=== PATIENT | female | born 1990 | race Caucasian/White ===

== ENCOUNTER 2018-12-16 06:41 | Outpatient (CLI) | payer OTHER ==
[~2018-12-16] VITALS: Ht 165.1 cm; Wt 68.0 kg
== END 2018-12-16 12:05 | disposition home or self-care (01) ==
LOC: PREOP 06:41
PROVIDERS: ATTEND Obstetrics & Gynecology
DX: Z01.818 Encounter for other preprocedural examination (principal)

== ENCOUNTER 2018-12-19 07:50 | Day surgery (SDC) | payer OTHER ==
[~2018-12-19] VITALS: Ht 165.1 cm; Wt 65.8 kg
[2018-12-19 08:10] VITALS: BP 127/85
--- NOTE | 2018-12-19 08:31 | Progress Note-Pre Operative ---
Pre-Operative Progress Note H&P Reviewed The H&P was reviewed, patient examined and no changes noted. Date Seen by Provider: Dec 19, 2018 Time Seen by Provider: 08:30 Date H&P Reviewed: Dec 19, 2018 Time H&P Reviewed: 08:30 Pre-Operative Diagnosis: bhumi 3 SHOAIB SALGADO DO Dec 19, 2018 08:31
[2018-12-19] MEDS: LACTATED RINGERS 1,000 ML IV PRN ×2 (08:40→11:09)
[2018-12-19 08:50] LABS: BASOPHILS % (AUTO) 0 % (0-10); EOSINOPHILS # (AUTO) 0.2 10^3/uL (0.0-0.3); EOSINOPHILS % (AUTO) 3 % (0-10); HEMATOCRIT 43 % (35-52); HEMOGLOBIN 14.6 G/DL (11.5-16.0); LYMPHOCYTES # (AUTO) 2.1 X 10^3 (1.0-4.0); LYMPHOCYTES % (AUTO) 38 % (12-44); MEAN CORPUSCULAR HEMOGLOBIN 29 PG (25-34); MEAN CORPUSCULAR HGB CONC 34 G/DL (32-36); MEAN CORPUSCULAR VOLUME 85 FL (80-99); MEAN PLATELET VOLUME 10.9 FL (7.4-10.4); MONOCYTES # (AUTO) 0.5 X 10^3 (0.0-1.0); MONOCYTES % (AUTO) 10 % (0-12); NEUTROPHILS # (AUTO) 2.8 X 10^3 (1.8-7.8); NEUTROPHILS % (AUTO) 49 % (42-75); PLATELET COUNT 271 10^3/uL (130-400); RED CELL DISTRIBUTION WIDTH 12.5 % (10.0-14.5); WHITE BLOOD COUNT 5.6 10^3/uL (4.3-11.0)
[2018-12-19] MEDS ORDERED: BUP/EPI 0.5% 1:200,000 (SENSORCAINE) 30 ML VIAL ONE ×2 (09:30→10:17)
[2018-12-19] MEDS ORDERED: BUPIVACAINE 0.25% 30 ML (SENSORCAINE) VIAL ONE (09:30)
[2018-12-19] MEDS ORDERED: LIDOCAINE PF 2% 5 ML (XYLOCAINE) VIAL ONE (09:59)
[2018-12-19] MEDS ORDERED: proPOfol 200 MG/20 ML (DIPRIVAN) VIAL IV ONE (09:59)
[2018-12-19] MEDS ORDERED: MIDAZOLAM 2 MG/2 ML (VERSED) VIAL ONE (10:00)
[2018-12-19] MEDS ORDERED: fentaNYL INJECTION 100 MCG/2 ML AMP ONE (10:00)
[2018-12-19] MEDS ORDERED: DEXAMETHASONE 10 MG/ML (DECADRON) 1 ML VIAL ONE (10:03)
[2018-12-19] MEDS ORDERED: ONDANSETRON 4 MG/2 ML (SDV) Z0FRAN ONE (10:03)
[2018-12-19] MEDS ORDERED: SEVOFLURANE (ULTANE) 15 ML INHAL SOLN ONE ×3 (10:03→10:27)
--- NOTE | 2018-12-19 10:05 | Discharge Inst-Women's Service ---
Discharge Inst-Women's Serv Depart Medication/Instructions New, Converted or Re-Newed RX: RX on Chart Consults/Follow Up Additional Follow Up: Yes Orders/Referrals Dr. Frazier in 3 weeks Activity Activity: Activity as Tolerated Driving Instructions: You May Drive NO SMOKING: NO SMOKING Nothing Inside Vagina: No Douching, No [place], No Tampons Diet Discharge Diet: No Restrictions Symptoms to Report to : Bleeding Excessive, Pain Increased, Fever Over 101 Degrees F, Vaginal Bleeding Increase, Questions/Concerns For Any Problems or Questions: Contact Your Physician Skin/Wound Care Bathing Instructions: SHOAIB Velásquez DO Dec 19, 2018 10:05
[2018-12-19] MEDS ORDERED: IBUP-1773 PO (10:07)
[2018-12-19] MEDS ORDERED: TRAM-42 PO (10:07)
[2018-12-19] MEDS ORDERED: KETOROLAC 30 MG/ML VIAL IVP ONE (11:15)
[2018-12-19] MEDS ORDERED: morphine INJ 10 MG/ML 1ML (SYR OR VIAL) IVP ONE (11:15)
[2018-12-19] MEDS ORDERED: PROMETHAZINE INJ 25 MG/ML (PHENERGAN) AMP IVP ONE (11:15)
[2018-12-19] MEDS ORDERED: ONDANSETRON 4 MG/2 ML (SDV) Z0FRAN IVP PRN (11:15)
[2018-12-19] MEDS ORDERED: HYDROmorphone 2 MG/ML VIAL (DILAUDID) IV ONE (11:15)
[2018-12-19] MEDS ORDERED: MEPERIDINE (DEMEROL) INJ 50 MG/ML IVP ONE (11:15)
[2018-12-19 11:57] VITALS: BP 114/81
[2018-12-19 12:02] VITALS: BP 114/81
[2018-12-19 12:27] VITALS: BP_SYST 116; BP_DIAS 73; BP_DIAS 80
[2018-12-19 12:57] VITALS: BP 116/73
--- NOTE | 2018-12-19 14:03 | Anesthesia-General Post-Op ---
General Patient Condition Mental Status/LOC: Same as Preop Cardiovascular: Satisfactory Nausea/Vomiting: Absent Respiratory: Satisfactory Pain: Controlled Complications: Absent Post Op Complications Complications None Follow Up Care/Instructions Patient Instructions None needed. Anesthesia/Patient Condition Patient Condition Patient is doing well, no complaints, stable vital signs, no apparent adverse anesthesia problems. No complications reported per nursing. JOSE BEAR CRNA Dec 19, 2018 14:03
--- NOTE | 2018-12-19 15:26 | OPERATIVE REPORT ---
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 PROCEDURE: Cold knife conization. SURGEON: Enrrique Frazier DO ANESTHESIA: General endotracheal. ESTIMATED BLOOD LOSS: Minimal. URINE OUTPUT: 30 mL clear, drained at the end of the procedure. FLUIDS: 900 mL of lactated Ringer solution. FINDINGS: A grossly normal appearing cervix with an extension of the transformation zone at 12 o'clock position. Otherwise, grossly normal appearing. SPECIMENS SENT: Cervical cold knife conization biopsy. INDICATIONS FOR PROCEDURE: This 28-year-old female is a patient who initially seen me in my office for annual well woman visit and to discuss preconceptual counseling. At the time of her visit, Pap smear was performed, which showed high-grade abnormality. Colposcopy confirmed this with ALISON 3 biopsy of the cervix. I then discussed with the patient proceeding with conization. We discussed LEEP in the office versus cold knife cone. Due to the concern of possible invasive disease, cold knife cone was recommended fashion as well as with desire to conceive and carry , a cold knife cone allowed me to direct biopsy in the correct appropriation, direct where the dysplasia is more severe. Risk of the procedure were discussed with the patient in detail in the preoperative area. After all of her questions were answered, consent was obtained. The patient was taken to the operating room. OPERATIVE REPORT IN DETAIL: Once in the operating room, general anesthesia was found to be adequate. She was placed in dorsal lithotomy position, prepped and draped in normal sterile fashion. A timeout was performed. A weighted speculum was inserted in the patient's vagina. A right angle retractor was used to visualize the cervix, grasped at 12 o'clock position using a long Allis clamp. I then performed a paracervical block at 3 and 9 o'clock positions using 0.25% Marcaine. Care was taken to aspirate before injecting, a total of 5 mL were used at each injection site. I then placed 0 Vicryl suture for hemostasis control at 3 and 9 o'clock position with attempts to ligate and limit blood supply to the cervix intraoperatively to reduce intraoperative and postoperative bleeding. After this, I then injected all margins of the cervix using the 0.25% Marcaine solution with epinephrine. I then applied Lugol solution. This allows me to identify the transformation zone and allows me to direct my biopsy. After this was done, I made a circumferential incision around the transformation zone stain 2 to 3 mm wide of the margin after which I take this incision down the cervix and toward the endocervical canal using Yoon scissors removing a cone biopsy of the transformation zone of the cervix, after which there was not a significant amount of bleeding; however, the bleeding that is occurring is made hemostatic using Bovie cautery. I then placed Sturmdorf sutures in the four quadrants of the cervix using 2-0 Vicryl suture. Prior to tightening these sutures down, I applied astringent to the cervical vascular bed as well. After the sutures were tightened down, there was no active bleeding noted from any of my dissection planes. The patient tolerated this procedure well and was taken to the recovery area in in stable condition. All other instruments were removed from the patient's vagina. Lap and sponge counts were correct at the end of the procedure. Instrument counts were correct as well. Job ID: [id number] DocumentID: [id number] Dictated Date: 12/19/2018 11:10:25 Team Guide Date: 12/19/2018 15:25:50 Dictated By: DO JEREMÍAS REYNAGA
== END 2018-12-19 12:59 | disposition home or self-care (01) ==
LOC: SDC 07:50
PROVIDERS: ATTEND Obstetrics & Gynecology
DX: D06.9 Carcinoma in situ of cervix, unspecified (principal); K21.9 Gastro-esophageal reflux disease without esophagitis
CPT/HCPCS: 36415; 84703; 85025; 86850; 86900; 86901; 87081

== ENCOUNTER 2019-11-17 12:46 | Outpatient (CLI) | payer OTHER ==
[~2019-11-17] VITALS: Ht 165 cm; Wt 68.0 kg
[~2019-11-17 12:46] MED LIST: IBUP-1773 PO; TRAM-42 PO
[2019-11-17] MEDS ORDERED: PREN-142 PO (13:04)
== END 2019-11-17 13:18 | disposition home or self-care (01) ==
LOC: PREOP 12:46
PROVIDERS: ATTEND Obstetrics & Gynecology
DX: Z01.818 Encounter for other preprocedural examination (principal)

== ENCOUNTER 2019-11-21 07:13 | Day surgery (SDC) | payer OTHER ==
[~2019-11-21] VITALS: Ht 165 cm; Wt 68.0 kg
[2019-11-21] VITALS (12 sets, daily range): BP systolic 100–127; BP diastolic 56–87
[~2019-11-21 07:13] MED LIST changes: +PREN-142 PO
--- NOTE | 2019-11-21 07:25 | NUR ---
[id number]
[2019-11-21] MEDS: LACTATED RINGERS 1,000 ML IV PRN ×2 (07:35→08:05)
[2019-11-21 07:52] LABS: BASOPHILS % (AUTO) 0 % (0-10); EOSINOPHILS # (AUTO) 0.2 10^3/uL (0.0-0.3); EOSINOPHILS % (AUTO) 2 % (0-10); HEMATOCRIT 38 % (35-52); LYMPHOCYTES # (AUTO) 2.3 X 10^3 (1.0-4.0); LYMPHOCYTES % (AUTO) 26 % (12-44); MEAN CORPUSCULAR HEMOGLOBIN 29 PG (25-34); MEAN CORPUSCULAR HGB CONC 34 G/DL (32-36); MEAN CORPUSCULAR VOLUME 85 FL (80-99); MEAN PLATELET VOLUME 10.6 FL (7.4-10.4); MONOCYTES # (AUTO) 0.8 X 10^3 (0.0-1.0); MONOCYTES % (AUTO) 9 % (0-12); NEUTROPHILS # (AUTO) 5.6 X 10^3 (1.8-7.8); NEUTROPHILS % (AUTO) 63 % (42-75); PLATELET COUNT 212 10^3/uL (130-400); RED CELL DISTRIBUTION WIDTH 12.7 % (10.0-14.5); WHITE BLOOD COUNT 8.9 10^3/uL (4.3-11.0)
--- NOTE | 2019-11-21 07:57 | History & Physical-OB/GYN ---
History of Present Illness History of Present Illness Reason for visit/HPI Shortened Cervix at 15 weeks Date of Admission 11/21/2019 Date Seen by a Provider: Nov 21, 2019 Time Seen by a Provider: 07:55 I consulted on this patient on 11/21/19 07:52 Attending Physician Shoaib Frazier DO Admitting Physician Zahra López MD Consult Allergies and Home Medications Allergies Coded Allergies: codeine (Verified Allergy, Mild, HIVES, N/V, 11/17/19) Home Medications Vit No.124/Iron/FA 1 Each Tablet, 1 EACH PO DAILY, (Reported) Patient Home Medication List Home Medication List Reviewed: Yes Past Lnluwlj-Kvbzcr-Cqktpa Hx Patient Social History Marrital Status: 2nd Hand Smoke Exposure: No Recent Foreign Travel: No Contact w/other who traveled: No Recent Hopitalizations: No Immunizations Up To Date Tetanus Booster (TDap): Unknown Pediatric: No Date of Pneumonia Vaccine: Nov 17, 2004 Date of Influenza Vaccine: Aug 18, 2019 Seasonal Allergies Seasonal Allergies: No Surgeries Yes (COLD KNIFE CONIZATION) Respiratory No Cardiovascular No Neurological No Reproductive System Sexually Transmitted Disease: No HIV/AIDS: No Female Reproductive Disorders: Denies Genitourinary No Gastrointestinal Yes Gastroesophageal Reflux, Irritable Bowel Musculoskeletal No Endocrine History of Endocrine Disorders: No HEENT History of HEENT Disorders: Yes (GLASSES/CONTACTS) Loss of Vision: Denies Hearing Impairment: Denies Cancer Yes Cervical Psychosocial History of Psychiatric Problem: No Integumentary History of Skin or Integumenta: No Blood Transfusions History of Blood Disorders: No Adverse Reaction to a Blood Tr: No (N/A) Review of Systems Constitutional: see HPI EENTM: see HPI Genitourinary: see HPI : Yes Expected Date of Delivery: May 12, 2020 Musculoskeletal: no symptoms reported Skin: no symptoms reported Psychiatric/Neurological: No Symptoms Reported All Other Systems Reviewed Negative Unless Noted: Yes Physical Exam Physical Exam Vital Signs Capillary Refill : Labs Laboratory Tests 11/21/19 07:35: General Appearance: No Apparent Distress Respiratory: Chest Non Tender, Lungs Clear Cardiovascular: Regular Rate, Rhythm Abdominal: normal bowel sounds Pelvic Exam: normal adnexa Extremity: Non Tender Assessment/Plan Assessment and Plan Solorzano Cerclage Admission Diagnosis 29 yo G1 @ 15 weeks Shortened cervix Hx of cervical conization x 2 Admission Status: Inpatient Order (span 2 midnights) Reason for Inpatient Admission: Cerclage FENECH,SHOAIB S DO Nov 21, 2019 07:57
[2019-11-21] MEDS ORDERED: D5 LR IV SOLUTION 1,000 ML IV SCH (08:02)
[2019-11-21] MEDS ORDERED: HYDR-4226 PO (08:04)
[2019-11-21] MEDS ORDERED: INDO25CA15 PO (08:04)
--- NOTE | 2019-11-21 08:07 | Discharge Inst-Women's Service ---
Discharge Inst-Women's Serv Depart Medication/Instructions New, Converted or Re-Newed RX: RX on Chart Problems Reviewed?: Yes Consults/Follow Up Additional Follow Up: Yes Orders/Referrals DR. SALGADO AT NEXT VISIT Activity Activity: Activity as Tolerated Driving Instructions: You May Drive (do not drive today) NO SMOKING: NO SMOKING Nothing Inside Vagina: No Douching, No [place], No Tampons Diet Discharge Diet: No Restrictions Symptoms to Report to : Bleeding Excessive, Pain Increased, Fever Over 101 Degrees F, Vaginal Bleeding Increase, Questions/Concerns For Any Problems or Questions: Contact Your Physician SHOAIB SALGADO DO Nov 21, 2019 08:07
[2019-11-21] MEDS ORDERED: HYDROmorphone 2 MG/ML VIAL (DILAUDID) IVP PRN (08:15)
[2019-11-21] MEDS ORDERED: INDOMETHACIN 25 MG (INDOCIN) CAP PO NR (08:15)
[2019-11-21] MEDS ORDERED: ONDANSETRON 4 MG/2 ML (SDV) Z0FRAN IVP PRN (08:15)
[2019-11-21] MEDS ORDERED: fentaNYL INJECTION 100 MCG/2 ML AMP ONE (08:55)
[2019-11-21] MEDS ORDERED: INDOMETHACIN 25 MG (INDOCIN) CAP PO SCH (09:00)
[2019-11-21] MEDS: ONDANSETRON 4 MG/2 ML (SDV) Z0FRAN IVP PRN ×2 (10:43→12:20)
--- NOTE | 2019-11-21 11:05 | NUR ---
[id number]
--- NOTE | 2019-11-21 12:30 | NUR ---
PT ATTEMPT TO AMBULATE UNSUCCESSFUL. REPORTS PELVIC NUMBNESS ET TINGLING.
--- NOTE | 2019-11-21 14:00 | NUR ---
PT ABLE TO AMBULATE TO BR WITH ASSIST. GAIT STEADY. ABLE TO URINATE WITHOUT DIFFICULTY. MINIMAL BLOODY DISCHARGE NOTED ON PAD.
--- NOTE | 2019-11-21 14:36 | Anesthesia-Regional Post-Op ---
Regional Patient Condition Mental Status: Alert, Oriented x3 Circulation: Same as Pre-Op Headache: Absent Sensation: Full Recovery Motor Block: Absent Post Op Complications Complications None Follow Up Care/Instructions Patient Instructions None needed. Anesthesia/Patient Condition Patient is doing well, no complaints, stable vital signs, no apparent adverse anesthesia problems. TRICIA ABRAHAM DO Nov 21, 2019 14:36
--- NOTE | 2019-11-21 15:05 | OPERATIVE REPORT ---
DATE OF SERVICE: 11/21/2019 PREOPERATIVE DIAGNOSIS: A 29-year-old female with shortening cervix at 15 weeks gestation. POSTOPERATIVE DIAGNOSIS: A 29-year-old female with shortening cervix at 15 weeks gestation. PROCEDURE: Solorzano cerclage. SURGEON: Shoaib Salgado DO ANESTHESIA: Spinal. ESTIMATED BLOOD LOSS: Minimal. URINE OUTPUT: 100 mL clear at the end of the start of the procedure. FLUIDS: 900 mL lactated Ringer's solution. FINDINGS: Grossly normal external female genitalia with cervix with evidence of previous two conization of the cervix. SPECIMEN SENT: None. INDICATIONS FOR PROCEDURE: This 29-year-old female is a patient who had sought care in my office and pre-conceptual counseling. She has undergone 2 previous LEEP conization procedures in the past for ALISON 3 that had positive margins until the second was indicated. After that second procedure there were clear margins and a negative Pap smear. The patient was counseled extensively about the shortening of her cervix and the possible need for cerclage if was achieved. A few months later was achieved and the patient was wanting to proceed with cerclage. I discussed with the patient her care. The risks of the procedure, all of her questions were answered in the preoperative area, consent was obtained, the patient was taken to the operating room. OPERATIVE REPORT IN DETAIL: Once in the operating room, spinal analgesic was found to be adequate, placed in dorsal lithotomy position, prepped and draped in normal sterile fashion. A timeout was performed. A weighted speculum inserted to the patient's vagina. Right angle retractor was used to visualize the cervix. It was grasped at 12 o'clock position using a long ring forceps. I then placed two Solorzano cerclages using #5 Ethibond and the knots at the 6 o'clock position after which there was no active bleeding noted from either cerclage placement. They are both placed with four separate bites of the cervix, after which the vagina was copiously irrigated using normal saline. Once again, there was no active bleeding noted from the suture placement. The instruments were then all removed from the patient's vagina. The patient tolerated the procedure well and sent to recovery area in stable condition. Lap and sponge counts were correct at the end of the procedure. Instrument counts correct as well. heart tones were dopplered at 150 pre and postoperatively. Job ID: [id number] DocumentID: [id number] Dictated Date: 11/21/2019 10:40:08 Road Test Examiner Date: 11/21/2019 15:05:24 Dictated By: SHOAIB SALGADO DO
== END 2019-11-21 14:25 | disposition home or self-care (01) ==
LOC: SDC 07:13
PROVIDERS: ATTEND Obstetrics & Gynecology
DX: O26.872 Cervical shortening, second trimester (principal); O99.612 Diseases of the digestive system complicating pregnancy, second trimester; K21.9 Gastro-esophageal reflux disease without esophagitis; K58.9 Irritable bowel syndrome, unspecified; Z3A.15 15 weeks gestation of pregnancy; Z85.41 Personal history of malignant neoplasm of cervix uteri; Z11.2 Encounter for screening for other bacterial diseases
CPT/HCPCS: 36415; 85025; 86850; 86900; 86901; 87081

== ENCOUNTER → 2019-12-30 | Outpatient (CLI) | payer OTHER ==
[~2019-12-30] MED LIST changes: +HYDR-4226 PO; +INDO25CA99 PO
--- NOTE | 2019-12-30 11:21 | Diagnostic Imaging Report ---
INDICATION: survey. TECHNIQUE: Multiple real-time grayscale images were obtained over the gravid uterus. COMPARISON: None FINDINGS: There is a single living intrauterine in cephalic presentation. Placenta is posterior. There is no previa. Amniotic fluid index is 11.78. The biometry correlates with a gestational age of 21 weeks 1 day. The anatomical survey is unremarkable. This includes a three-vessel cord and four-chamber heart. Heart rate is 144 BPM. Maternal adnexa is unremarkable. Biometrical measurements are as follows: Biparietal 4.85 cm, age 20 weeks 5 days. Head circumference 18.77 cm, age 21 weeks 1 days. Abdominal circumference 15.41 cm, age 20 weeks 5 days. Femur length 3.62 cm, age 21 weeks 4 days. Sonographic estimate age: 21 weeks 1 days. Sonographic estimated date of delivery: 05/10/2020. Estimated Weight: 392 gm (+/- 57 gm). LMP percentile: 53%. heart rate: 144 beats per minute. number: 1 of 1. IMPRESSION: Single living intrauterine is present with a sonographically estimated gestational age of 21 weeks 1 day and estimated date of confinement of May 10, 2020. Dictated by: Dictated on workstation # [id number]
== END ==
LOC: RAD 09:38
PROVIDERS: ATTEND Obstetrics & Gynecology
DX: Z36.9 Encounter for antenatal screening, unspecified (principal); Z3A.21 21 weeks gestation of pregnancy
CPT/HCPCS: 76805

== ENCOUNTER 2020-05-05 18:33 | Inpatient (IN) | payer OTHER ==
[~2020-05-05] VITALS: Ht 166 cm; Wt 83.0 kg
--- OUTSIDE RECORDS SUMMARY | 2020-05-05 18:37 | XMS REPORT | Continuity of Care Document ---
Author Organization Unknown Address Unknown Phone Unavailable Allergies Active Description Code Type Severity Reaction Onset Reported/Identified Relationship to Patient Clinical Status Yes codeine [id number] Drug Allergy Mild HIVES, N/V 11/17/2019 Yes codeine [id number] Drug Allergy Mild HIVES, N/V, has 11/21/2019 Medications There is no data. 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, UNSPECIFIED 12/20/2018 PRIMITIVOECH DOSHOAIB Ot K21.9 GASTRO-ESOPHAGEAL REFLUX DISEASE WITHOUT 11/19/2019 FENECH DOSHOAIB Ot Z01.818 ENCOUNTER FOR OTHER PREPROCEDURAL EXAMIN 11/21/2019 PRIMITIVOECH SHOAIB RIVERS Ot K21.9 GASTRO-ESOPHAGEAL REFLUX DISEASE WITHOUT 11/21/2019 FENECH DOSHOAIB Ot K58.9 IRRITABLE BOWEL SYNDROME WITHOUT DIARRHE 11/21/2019 SHOAIB SALGADO DO Ot O26.872 CERVICAL SHORTENING, SECOND TRIMESTER 11/21/2019 SHOAIB SALGADO DO Ot O99.612 DISEASES OF THE DGSTV SYS COMP 11/21/2019 SHOAIB SALGADO DO Ot Z11.2 ENCOUNTER FOR SCREENING FOR OTHER BACTER 11/21/2019 SHOAIB SALGADO DO Ot Z3A.15 15 WEEKS GESTATION OF 11/21/2019 FENECH DO, SHOAIB Cahpin Ot Z85.41 PERSONAL HISTORY OF MALIGNANT NEOPLASM O 11/24/2019 FENECH DO, SHOAIB Chapin Ot K21.9 GASTRO-ESOPHAGEAL REFLUX DISEASE WITHOUT 11/24/2019 FENECH DO, SHOAIB Chapin Ot K58.9 IRRITABLE BOWEL SYNDROME WITHOUT DIARRHE 11/24/2019 FENECH DO, SHOAIB Chapin Ot O26.872 CERVICAL SHORTENING, SECOND TRIMESTER 11/24/2019 PRIMITIVOECH , SHOAIB Chapin Ot O99.612 DISEASES OF THE DGSTV SYS COMP 11/24/2019 PRIMITIVOECH DO, SHOAIB Chapin Ot Z11.2 ENCOUNTER FOR SCREENING FOR OTHER BACTER 11/24/2019 DAMIAN DO, SHOAIB Chapin Ot Z3A.15 15 WEEKS GESTATION OF 11/24/2019 PRIMITIVOECH , SHOAIB Chapin Ot Z85.41 PERSONAL HISTORY OF MALIGNANT NEOPLASM O 12/31/2019 PRIMITIVOECH DO, SHOAIB Chapin Ot Z36.9 ENCOUNTER FOR SCREENING, UNSPE 12/31/2019 SHOAIB SALGADO DO Ot Z3A.21 21 WEEKS GESTATION OF Procedures There is no data. Results Test Result Range Urine beta human chorionic gonadotropin (hCG) measurement - 12/19/18 08:02 Urine beta human chorionic gonadotropin (hCG) measurem ent NEGATIVE NEGATIVE Methicillin resistant Staphylococcus aur eus (MRSA) screening culture - 12/19/18 08:10 Methicillin resistant Staphylococcus aureus (MRSA) scr eening culture NEG NRG Complete blood count (CBC) with automate d white blood cell (WBC) differential - 12/19/18 08:35 Blood leukocytes automated count (number/volume) 5.6 10*3/uL 4.3-11.0 Blood erythrocytes automated count (number/volume) 5.03 10*6/uL 4.35-5.85 Venous blood hemoglobin measurement (mass/volume) 14.6 g/dL 11.5-16.0 Blood hematocrit (volume fraction) 43 % 35-52 Automated erythrocyte mean corpuscular volume 85 [ foz_us] 80-99 Automated erythrocyte mean corpuscular h emoglobin (mass per erythrocyte) 29 pg 25-34 Automated erythrocyte mean corpuscular h emoglobin concentration measurement (mass/volume) 34 g/dL 32-36 Automated erythrocyte distribution width ratio 12. 5 % 10.0- 14.5 Automated blood platelet count (count/volume) 271 10*3/uL 130-400 Automated blood platelet mean volume measurement 10.9 [foz_us] 7.4-10.4 Automated blood neutrophils/100 leukocytes 49 % 42-75 Automated blood lymphocytes/100 leukocytes 38 % 12-44 Blood monocytes/100 leukocytes 10 % 0-12 Automated blood eosinophils/100 leukocytes 3 % 0-10 Automated blood basophils/100 leukocytes 0 % 0-10 Blood neutrophils automated count (number/volume) 2.8 10*3 1.8-7.8 Blood lymphocytes automated count (number/volume) 2.1 10*3 1.0-4.0 Blood monocytes automated count (number/volume) 0. 5 10*3 0.0-1.0 Automated eosinophil count 0.2 10*3/uL 0 .0-0.3 Automated blood basophil count (count/volume) 0.0 10*3/uL 0.0-0.1 Blood type T Indirect antibody screen pa derrell - 12/19/18 08:35 ABO+Rh group AP NRG Transfusion band number [id number] NR Blood group antibody screen NEGATIVE NR G Complete blood count (CBC) with automate d white blood cell (WBC) differential - 11/21/19 07:35 Blood leukocytes automated count (number/volume) 8.9 10*3/uL 4.3-11.0 Blood erythrocytes automated count (number/volume) 4.48 10*6/uL 4.35-5.85 Venous blood hemoglobin measurement (mass/volume) 13.0 g/dL 11.5-16.0 Blood hematocrit (volume fraction) 38 % 35-52 Automated erythrocyte mean corpuscular volume 85 [ foz_us] 80-99 Automated erythrocyte mean corpuscular h emoglobin (mass per erythrocyte) 29 pg 25-34 Automated erythrocyte mean corpuscular h emoglobin concentration measurement (mass/volume) 34 g/dL 32-36 Automated erythrocyte distribution width ratio 12. 7 % 10.0- 14.5 Automated blood platelet count (count/volume) 212 10*3/uL 130-400 Automated blood platelet mean volume measurement 10.6 [foz_us] 7.4-10.4 Automated blood neutrophils/100 leukocytes 63 % 42-75 Automated blood lymphocytes/100 leukocytes 26 % 12-44 Blood monocytes/100 leukocytes 9 % 0-12 Automated blood eosinophils/100 leukocytes 2 % 0-10 Automated blood basophils/100 leukocytes 0 % 0-10 Blood neutrophils automated count (number/volume) 5.6 10*3 1.8-7.8 Blood lymphocytes automated count (number/volume) 2.3 10*3 1.0-4.0 Blood monocytes automated count (number/volume) 0. 8 10*3 0.0-1.0 Automated eosinophil count 0.2 10*3/uL 0 .0-0.3 Automated blood basophil count (count/volume) 0.0 10*3/uL 0.0-0.1 Blood type T Indirect antibody screen pa derrell - 11/21/19 07:35 WRISTBAND NUMBER [id number] NRG ABO+Rh group AP NRG Blood group antibody screen NEGATIVE NR G Methicillin resistant Staphylococcus aur eus (MRSA) screening culture - 11/21/19 07:40 Methicillin resistant Staphylococcus aureus (MRSA) scr eening culture NEG NRG Encounters ACCT No. Visit Date/Time Discharge Status Pt. Type Provider Facility Loc./Unit Complaint [id number] 06/25/2019 13:20:00 06/25/2019 23:59: 59 CLS Outpatient [facility] [id number] 12/30/2019 09:38:00 23:59:59 CLS Outpatient SOHAIB SALGADO DO [facility] RAD [id number] 11/21/2019 07:13:00 14:25:00 DIS Outpatient SHOAIB SALGADO DO [facility] SHORTENED CERVIX [id number] 11/17/2019 12:46:00 13:18:00 DIS Outpatient SHOAIB SALGADO DO [facility] PREOP SHORTENED CERVIX [id number] 12/19/2018 07:50:00 12:59:00 DIS Outpatient SHOAIB SALGADO DO [facility] CIN3, CI3 [id number] 12/16/2018 06:41:00 12:05:00 DIS Outpatient SHOAIB SALGADO DO [facility] PREOP COLD KNIFE CONE [id number] 05/05/2020 19:00:00 P SHOAIB Ocampo DO
--- NOTE | 2020-05-05 18:45 | NUR ---
SANDRA VICENTE presented to unit via ambulation from ED, accompanied by , for scheduled IOL. Pt. weighed, gowned, voided, and to bed. EFHM and TOCO applied, VS taken. Pt. oriented to bed controls, call light, TV, heat, and A/C controls.
[2020-05-05 19:00] VITALS: BP 166/98
[2020-05-05] MEDS ORDERED: D5 LR IV SOLUTION 1,000 ML IV ONE (19:18)
[2020-05-05] MEDS: D5 LR IV SOLUTION 1,000 ML IV SCH (19:35)
[2020-05-05] MEDS ORDERED: MISOPROSTOL 100 MCG (CYTOTEC) TAB PO ONE (20:00)
[2020-05-05] MEDS ORDERED: MINERAL OIL CONCENTRATE 99.9% 15 ML UDC TOP PRN (20:00)
[2020-05-05] MEDS ORDERED: MISOPROSTOL 100 MCG (CYTOTEC) TAB ONE (20:02)
[2020-05-05 20:05] VITALS: BP 133/91
[2020-05-05 20:06] LABS: BASOPHILS % (AUTO) 0 % (0-10); EOSINOPHILS # (AUTO) 0.1 10^3/uL (0.0-0.3); EOSINOPHILS % (AUTO) 1 % (0-10); HEMATOCRIT 37 % (35-52); HEMOGLOBIN 12.6 G/DL (11.5-16.0); LYMPHOCYTES # (AUTO) 2.4 X 10^3 (1.0-4.0); LYMPHOCYTES % (AUTO) 27 % (12-44); MEAN CORPUSCULAR HEMOGLOBIN 30 PG (25-34); MEAN CORPUSCULAR HGB CONC 34 G/DL (32-36); MEAN CORPUSCULAR VOLUME 89 FL (80-99); MEAN PLATELET VOLUME 11.8 FL (7.4-10.4); MONOCYTES # (AUTO) 0.7 X 10^3 (0.0-1.0); MONOCYTES % (AUTO) 8 % (0-12); NEUTROPHILS # (AUTO) 5.6 X 10^3 (1.8-7.8); NEUTROPHILS % (AUTO) 64 % (42-75); PLATELET COUNT 194 10^3/uL (130-400); RED CELL DISTRIBUTION WIDTH 13.1 % (10.0-14.5); WHITE BLOOD COUNT 8.8 10^3/uL (4.3-11.0)
[2020-05-05 20:31] VITALS: BP 133/91
[2020-05-05 21:44] VITALS: BP 174/79
[2020-05-05] MEDS ORDERED: CATHETER FLUSH 10 ML SYR IV SCH (22:00)
--- NOTE | 2020-05-05 22:06 | NUR ---
Pt. called nurse to bedside. States that contractions are very painful and that she is sick to her stomach. Request Zofran at this time. Pt. up to bathroom to have BM.
[2020-05-05] MEDS ORDERED: ONDANSETRON 4 MG/2 ML (SDV) Z0FRAN IVP PRN (22:30)
[2020-05-05] MEDS ORDERED: HYDROmorphone 2 MG/ML VIAL (DILAUDID) IV ONE (22:30)
[2020-05-05 22:45] VITALS: BP 165/90
--- NOTE | 2020-05-05 22:56 | NUR ---
Pt. turned all the way on left side in attempt to resolve early decelerations.
--- NOTE | 2020-05-05 23:43 | NUR ---
Dr. Frazier called and informed that pt is 4.5cm, 90% effaced, and requesting an epidural. Stip reviewed. informed that pt is having continuous early decels. Vitals reviewed. states that pt can have epidural.
[2020-05-05] MEDS ORDERED: fentaNYL 2 mcg/ml BUPIVA 0.125 100 ML ONE (23:45)
--- NOTE | 2020-05-05 23:45 | NUR ---
Anesthesia called and informed that pt is requesting epidural. Labs reviewed and informed that bolus was just started.
[2020-05-05 23:48] VITALS: BP 147/81
[2020-05-06] VITALS (20 sets, daily range): BP systolic 115–182; BP diastolic 69–104
[2020-05-06] MEDS ORDERED: MISOPROSTOL 100 MCG (CYTOTEC) TAB PO SCH
--- NOTE | 2020-05-06 | NUR ---
Pt. checked to ensure delivery is not imminent before being sat up for epidural. SVE shows pt is 8cm, 100% effaced, and intact. Dr. Frazier is called and informed of pt status at this time.
--- NOTE | 2020-05-06 00:07 | NUR ---
0007: Anesthesia in room at pt bedside. Procedure explained. 0009: Pt up in sitting position with help. 0013: Local anesthesia given at this time. Vitals remain stable. 0014: Epidural cath placed. 0015: First test dose given. Pt. shows no adverse reactions. Epidural is taped and pt is laid back in bed. 0017: Epidural pump started. 0021: 100mg of lidocaine and 100mcg of fentanyl bolus given.
[2020-05-06] MEDS ORDERED: LIDOCAINE PF 2% 5 ML (XYLOCAINE) VIAL ONE (00:17)
[2020-05-06] MEDS ORDERED: fentaNYL INJECTION 100 MCG/2 ML AMP ONE (00:18)
[2020-05-06] MEDS ORDERED: LACTATED RINGERS 1,000 ML IV SCH (00:29)
[2020-05-06] MEDS ORDERED: METOCLOPRAMIDE INJ 10 MG/2 ML (REGLAN) IV PRN (00:30)
[2020-05-06] MEDS ORDERED: diphenhydrAMINE 50 MG/ML INJ (BENADRYL) IV PRN (00:30)
[2020-05-06] MEDS ORDERED: NALOXONE 0.4 MG/ML 1 ML (NARCAN) VIAL IV PRN ×2 (00:30)
[2020-05-06] MEDS ORDERED: EPIDURAL (fentaNYL 2 MCG/ML BUPIVA 0.125%)100 ML BAG EPI SCH (00:30)
[2020-05-06] MEDS: D5 LR IV SOLUTION 1,000 ML IV SCH (00:30)
[2020-05-06] MEDS ORDERED: ONDANSETRON 4 MG/2 ML (SDV) Z0FRAN IV PRN (00:30)
--- NOTE | 2020-05-06 00:32 | NUR ---
Dr. Frazier called and informed that pt is 9cm with bulging bag. states that pt can labor down if comfortable.
--- NOTE | 2020-05-06 01:39 | NUR ---
Called and informed that pt is complete and plus two station with a bulging bag. Strip reviewed. states that he is walking in the hospital doors now.
[2020-05-06] MEDS ORDERED: OXYTOCIN PRE-MIX DRIP 500 ML IV ONE ×2 (01:40→02:29)
--- NOTE | 2020-05-06 01:42 | NUR ---
0142: Dr. Frazier in room. Pt put up in stirrups for pushing. broken water at this time. Meconium present. Pt. pushing. 0158: Delivery of head and body. Viable infant placed on mom's chest. Infant warmed, dried, and stimulated. Mouth suctioned using bulb syringe. 0200: Pt remains in stirrups for repair of 2nd degree vaginal laceration. 0210: Placenta delivered. Pitocin wide open at this time. 0215: Repair complete. Fundus firm and one under. Minimal bleeding noted. 0217: Pericare provided to pt and pt taken out of stirrups. 0230: Fundus massaged at this time. Fundus is firm and one under umbilicus. Minimal bleeding and no clots noted. 0245: Fundus massaged at this time. Fundus is firm and one under umbilicus. Minimal bleeding and no clots noted. 0300: Fundus massaged at this time. Fundus is firm and one under umbilicus. Minimal bleeding and no clots noted. 0315: Fundus massaged at this time. Fundus is firm and one under umbilicus. Minimal bleeding and no clots noted. 0345: Fundus massaged at this time. Fundus is firm and one under umbilicus. Minimal bleeding and no clots noted.
[2020-05-06] MEDS ORDERED: WITCH HAZEL(TUCKS) 40 EA JAR TOP PRN (02:30)
[2020-05-06] MEDS ORDERED: BENZOCAINE/MENTHOL (DERMOPLAST) 60 ML CAN TP PRN (02:30)
[2020-05-06] MEDS ORDERED: TETANUS,DIPTH,PERTUSS P/F (BOOSTRIX) 0.5 ML VIAL IM ONE (02:30)
[2020-05-06] MEDS ORDERED: DIBUCAINE (NUPERCAINAL) 1% OINT 30 GM TOP PRN (02:30)
[2020-05-06] MEDS ORDERED: MEASLES,MUMPS,RUBELLA 1 EA INJ SQ ONE (02:30)
[2020-05-06] MEDS ORDERED: HYDROcodone/APAP 5 MG/325 MG (LORTAB) TAB PO PRN (02:30)
[2020-05-06] MEDS: IBUPROFEN 600 MG (MOTRIN) TAB PO SCH ×3 (04:07→22:11)
--- NOTE | 2020-05-06 04:15 | NUR ---
Fundus massaged. Minimal bleeding noted. Fundus is firm and still one under umbilicus. No clots expressed. Pt. can lift her right leg off of the bed, but is unable to lift her left leg. Will reassess again at 0445. Pt request lights down in attempt to sleep for a short bit.
[2020-05-06] MEDS: OXYTOCIN PRE-MIX DRIP 500 ML IV SCH ×2 (05:44→05:45)
[2020-05-06] MEDS ORDERED: CATHETER FLUSH 10 ML SYR IV SCH (06:00)
--- NOTE | 2020-05-06 08:36 | History & Physical-OB ---
OB - Chief Complaint & HPI Date/Time Date of Admission: Date of Admission: May 05, 2020 at 6:33 pm Date seen by a Provider: May 05, 2020 Time Seen by a Provider: 20:00 Chief Complaint/History OB-Reason for Admission/Chief: Induction of Labor Hx : 1 Hx Para: 0 Expected Date of Delivery: May 12, 2020 Gestational Age in Weeks: 39 Gestational Age in Days: 1 Admission Nurse Assessment Rev: Yes History of Labs A pos Antibody neg RI RPR NR HBsAg NR HIV NR GC neg GBS neg Allergies and Home Medications Allergies Coded Allergies: codeine (Verified Allergy, Mild, HIVES, N/V, has rec Morphine & Dilaudid in the past, 11/21/19) Home Medications Hydrocodone/Acetaminophen 1 Each Tablet, 1 TAB PO Q4-6HR Prescribed by: SHOAIB SALGADO on 11/21/19 08 Indomethacin 25 Mg Capsule, 25 MG PO Q6 Prescribed by: SHOAIB SALGADO on 11/21/19 08 Vit No.124/Iron/FA 1 Each Tablet, 1 EACH PO DAILY, (Reported) Patient Home Medication List Home Medication List Reviewed: Yes OB - History Hx of Present Care: Yes Ultrasounds: Normal mid trimester US Obstetrical Complications: None Medical Complications: None Delivery History Adverse Rxn to Tranfusion: No Patient Past Medical History n/a Social History/Family History HIV/AIDS: No Recent Infectious Disease Expo: No Sexually Transmitted Disease: No Alcohol Use: Denies Use Recreational Drug Use: No 2nd Hand Smoke Exposure: No Immunizations Hepatitis A: Yes Hepatitis B: Yes Tetanus Booster (TDap): Unknown Date of Pneumonia Vaccine: Nov 17, 2004 Date of Influenza Vaccine: Aug 18, 2019 OB - Admission Exam Physical Exam Vitals: Vital Signs 05/06/20 05/06/20 05/06/20 01:02 02:00 03:45 Temp 36.9 Pulse 82 Resp 18 B/P (MAP) 137/76 (96) Pulse Ox 99 O2 Delivery Room Air HEENT: NCAT Heart: Rhythm Normal Lungs: Clear Abdomen: Gravid Extremities: Normal Reflexes: Normal Cervical Dilatation: 2cm Effacement: 75% Station: -1 Membranes: Intact Heart Rate: 130's Accelerations: Accelerations Present Decelerations: No Decelerations Short Term Variability: Present [employer] Variability: Average (6-25) Contractions on Admission: 6-10 Minutes Apart Intensity: Mild Nance Scoring Tool (Modified) Dilation (cm): 1-2cm (1) Effacement (%): 80-100% (3) Descent/Station: -1,0 (2) Cervix Consistency: Soft (2) Cervix Position: Anterior (2) Subtract 1 point for: Nulliparity (-1) Nance Score: 9 Labs Laboratory Tests Test 05/05/20 19:32 Range/Units White Blood Count 8.8 4.3-11.0 10^3/uL Red Blood Count 4.16 L 4.35-5.85 10^6/uL Hemoglobin 12.6 11.5-16.0 G/DL Hematocrit 37 35-52 % Mean Corpuscular Volume 89 80-99 FL Mean Corpuscular Hemoglobin 30 25-34 PG Mean Corpuscular Hemoglobin Concent 34 32-36 G/DL Red Cell Distribution Width 13.1 10.0-14.5 % Platelet Count 194 130-400 10^3/uL Mean Platelet Volume 11.8 H 7.4-10.4 FL Neutrophils (%) (Auto) 64 42-75 % Lymphocytes (%) (Auto) 27 12-44 % Monocytes (%) (Auto) 8 0-12 % Eosinophils (%) (Auto) 1 0-10 % Basophils (%) (Auto) 0 0-10 % Neutrophils # (Auto) 5.6 1.8-7.8 X 10^3 Lymphocytes # (Auto) 2.4 1.0-4.0 X 10^3 Monocytes # (Auto) 0.7 0.0-1.0 X 10^3 Eosinophils # (Auto) 0.1 0.0-0.3 10^3/uL Basophils # (Auto) 0.0 0.0-0.1 10^3/uL OB - Assessment/Plan/Diagnosis Assessment Assessment: induction of labor Admission Dx 29 yo @ 39 weeks Elective induction of labor GBS neg Admission Status: Inpatient Order (span 2 midnights) Reason for Inpatient Admission: Induction of labor at term Plan Induction Method: per Misoprostol Protocol SHOAIB SALGADO DO May 06, 2020 8:36 am
--- NOTE | 2020-05-06 08:41 | OB Labor & Delivery Record ---
L&D History Date of Service Date of Service: May 06, 2020 History Expected Date of Delivery: May 12, 2020 Gestational Age in Weeks: 39 Hx : 1 Hx Para: 0 Complications Events: Routine care Operative Indications (Cesarea: N/A-Vaginal Delivery Intrapartal Events: None L&D Stage1 Stage One Onset of Labor - Date: May 06, 2020 Monitors and Tracing Monitor Mode: External Heart Rate: 150 Monitor Accelerations: Uniform Monitor Decelerations: None Station: -1 [employer] Analyst Variability: Average (6-10) Short Term Variability: Present Presentation: Vertex Vital Signs VS - Last 72 Hours, by Label 05/05/20 05/05/20 05/05/20 05/05/20 19:00 20:05 20:31 21:44 Temp 36.4 36.4 36.4 36.6 Pulse 74 82 82 55 Resp 18 18 18 18 B/P (MAP) 166/98 (120) 133/91 (105) 174/79 (110) Pulse Ox 96 O2 Delivery Room Air Room Air Room Air Room Air 05/05/20 05/05/20 05/06/20 05/06/20 22:45 23:48 00:11 00:16 Temp 36.6 Pulse 60 67 79 73 Resp 20 20 20 20 B/P (MAP) 165/90 (115) 147/81 (103) 144/97 (113) 152/98 (116) Pulse Ox 98 98 O2 Delivery Room Air Room Air Room Air Room Air 05/06/20 05/06/20 05/06/20 05/06/20 00:18 00:20 00:25 00:30 Pulse 74 67 78 76 Resp 20 20 20 18 B/P (MAP) 182/104 (130) 179/84 (115) 180/87 (118) 139/90 (106) Pulse Ox 97 97 98 98 O2 Delivery Room Air Room Air Room Air Room Air 05/06/20 05/06/20 05/06/20 05/06/20 00:40 00:45 01:02 01:25 Temp 36.9 Pulse 81 77 68 87 Resp 18 18 18 18 B/P (MAP) 142/95 (111) 146/98 (114) 141/69 (93) 126/94 (105) Pulse Ox 97 97 97 95 O2 Delivery Room Air Room Air Room Air Room Air 05/06/20 05/06/20 05/06/20 05/06/20 01:33 02:00 02:39 02:58 Pulse 81 87 93 100 Resp 18 18 18 18 B/P (MAP) 128/88 (101) 141/78 (99) 115/71 (86) 122/75 (91) Pulse Ox 99 99 O2 Delivery Room Air Room Air Room Air Room Air 05/06/20 05/06/20 03:30 03:45 Pulse 73 82 Resp 18 18 B/P (MAP) 127/71 (89) 137/76 (96) O2 Delivery Room Air Room Air Rupture of Membranes Spontaneous Ruture of Membrane: No Amniotic Membrane Rupture Time: 442 Amniotic Membrane Fluid Desc.: Clear Vaginal Bleeding Description: Normal Show Induction/Anesthesia Epidural Cath Placement - Time: 13 Progress/Notes Patient admitted for induction of labor and given 100 mcg cytotec PO x 1 dose, she went into labor shortly after and progressed to complete and bulging membranes after getting an epidural L&D Stage2 Stage Two Stage II Date: May 06, 2020 Monitors and Tracing Monitor Mode: External Heart Rate: 150 Monitor Accelerations: Uniform Nursing Home Variability: Average (6-10) Short Term Variability: Present Position: Right Occiput Anterior Presentation: Vertex Cord Descript/Complications Cord Vessel Description: 3 Vessels Delivery Type Delivery Method: Spontaneous Vaginal Anterior Shoulder: Left Episiotomy/Perineal Laceration Laceraction(s)/Extensions: Yes Episiotomy Description: Vaginal Extension/lac Degree (describe repair) 2nd degree vaginal laceration repaired using 3-0 rapide in usual fashion Condition of Infant Delivery 1 minute Comment: 9 5 minute Comment: 9 Notes Live female infant 6lbs 4 oz Condition of Condition of Infant: Living Exam: No Observed Abnormalities Resuscitation Resuscitation: N/A - Spontaneous Resp L&D Stage3 Stage Three Stage III Date: May 06, 2020 Pictocin Pitocin Administration Comment: 30 mu wide open at delivery of placenta Placenta Delivery Placenta Delivery: Spontaneous Delivery Summary Summary Estimated blood loss (mL): 300 Attending at delivery: Shoaib Salgado DO Condition of Delivery Examined: Cervix Examined, Uterus Explored Post Hemorrhage: No Condition of Mother stable Condition of Infant (s) stable SHOAIB SALGADO DO May 06, 2020 8:41 am
--- NOTE | 2020-05-06 09:25 | Anesthesia-Regional Post-Op ---
Regional Patient Condition Mental Status: Alert, Oriented x3 Circulation: Same as Pre-Op Headache: Absent Sensation: Full Recovery Motor Block: Absent Post Op Complications Complications None Follow Up Care/Instructions Patient Instructions None needed. Anesthesia/Patient Condition Patient is doing well, no complaints, stable vital signs, no apparent adverse anesthesia problems. No complications reported per nursing. D/C home per [facility] Criteria: No ADAIR MACK CRNA May 06, 2020 09:25
[2020-05-06] MEDS: DOCUSATE SODIUM 100 MG (COLACE) CAP PO SCH ×2 (10:29→22:11)
--- NOTE | 2020-05-06 10:35 | NUR ---
initial shift assessment completed, see interventions for further.
--- NOTE | 2020-05-06 22:18 | NUR ---
notified of pt elevated bp, pt denies h/a and was woken as rn entered room, no recent ambulatory activity done, consistent cuff and arm used for evaluation. POC to retake bp in 30min with poss manual reading and update if elevated.
[2020-05-07] MEDS ORDERED: amLODIPine 5 MG (NORVASC) TAB PO ONE (01:00)
[2020-05-07] MEDS ORDERED: amLODIPine 10 MG (NORVASC) TAB ONE (01:10)
--- NOTE | 2020-05-07 01:16 | Discharge Inst-Women's Service ---
Discharge Inst-Women's Serv Depart Medication/Instructions New, Converted or Re-Newed RX: RX on Chart Problems Reviewed?: Yes Consults/Follow Up Additional Follow Up: Yes Orders/Referrals Dr. Salgado in 1 week for BP check and 6 weeks Activity Activity: Activity as Tolerated Driving Instructions: No Driving for 1 Week NO SMOKING: NO SMOKING Nothing Inside Vagina: No Douching, No [place], No Tampons Diet Discharge Diet: No Restrictions Symptoms to Report to : Bleeding Excessive, Pain Increased, Fever Over 101 Degrees F, Vaginal Bleeding Increase, Questions/Concerns For Any Problems or Questions: Contact Your Physician SHOAIB SALGADO DO May 07, 2020 01:16
[2020-05-07] MEDS ORDERED: DCS100C PO (01:18)
[2020-05-07] MEDS ORDERED: AMLO5TAB4 PO (01:18)
[2020-05-07] MEDS ORDERED: HYDR-83 PO (01:18)
[2020-05-07] MEDS ORDERED: IBUP-844 PO (01:18)
[2020-05-07] MEDS ORDERED: BENZ78AE2 TP (01:18)
--- NOTE | 2020-05-07 01:20 | Postpartum Progress Note ---
Note Note Day # 1 Subjective: Patient is without complaints. Ambulating, voiding. Tolerating a regular diet without nausea or vomiting. Normal lochia. Pain is well controlled with oral pain medications. BP elevated overnight and started on single dose 5 mg Norvasc Objective: Physical Exam: General - Alert and oriented, no apparent distress Abdomen - Soft, appropriately tender to palpation, non-distended, fundus firm at umbilicus Extremities - no edema, negative Reilly's bilaterally Assessment: PPD 1 NVD HTN- starting on Norvasc Plan: Routine care. Encourage breast feeding. Encourage ambulation. Ferrous sulfate supplementation. Plan for discharge today if BP controlled, with short term week follow up for BP check. Vitals - Labs Vital Signs - I&O Vital Signs Date Time Temp Pulse Resp B/P (MAP) Pulse Ox O2 Delivery O2 Flow Rate FiO2 05/06/20 22:12 36.7 85 18 178/99 (125) 97 Room Air 05/06/20 15:30 37.1 66 18 157/99 (118) 96 Room Air 05/06/20 10:35 36.6 80 18 138/74 (95) 97 Room Air 05/06/20 03:45 82 18 137/76 (96) Room Air 05/06/20 03:30 73 18 127/71 (89) Room Air 05/06/20 02:58 100 18 122/75 (91) Room Air 05/06/20 02:39 93 18 115/71 (86) Room Air 05/06/20 02:00 87 18 141/78 (99) 99 Room Air 05/06/20 01:33 81 18 128/88 (101) 99 Room Air 05/06/20 01:25 87 18 126/94 (105) 95 Room Air SHOAIB SALGADO DO May 07, 2020 01:20
[2020-05-07 04:46] VITALS: BP 167/88
[2020-05-07] MEDS: IBUPROFEN 600 MG (MOTRIN) TAB PO SCH (04:48)
[2020-05-07 05:34] LABS: BASOPHILS % (AUTO) 0 % (0-10); EOSINOPHILS # (AUTO) 0.1 10^3/uL (0.0-0.3); EOSINOPHILS % (AUTO) 1 % (0-10); HEMATOCRIT 33 % (35-52); HEMOGLOBIN 11.2 G/DL (11.5-16.0); LYMPHOCYTES # (AUTO) 2.6 X 10^3 (1.0-4.0); LYMPHOCYTES % (AUTO) 25 % (12-44); MEAN CORPUSCULAR HEMOGLOBIN 31 PG (25-34); MEAN CORPUSCULAR HGB CONC 34 G/DL (32-36); MEAN CORPUSCULAR VOLUME 90 FL (80-99); MONOCYTES # (AUTO) 0.7 X 10^3 (0.0-1.0); MONOCYTES % (AUTO) 7 % (0-12); NEUTROPHILS # (AUTO) 6.9 X 10^3 (1.8-7.8); NEUTROPHILS % (AUTO) 67 % (42-75); PLATELET COUNT 126 10^3/uL (130-400); RED CELL DISTRIBUTION WIDTH 13.3 % (10.0-14.5); WHITE BLOOD COUNT 10.4 10^3/uL (4.3-11.0)
[2020-05-07 05:35] VITALS: BP 139/87
[2020-05-07 08:00] VITALS: BP 132/81
[2020-05-07] MEDS: DOCUSATE SODIUM 100 MG (COLACE) CAP PO SCH (08:15)
== END 2020-05-07 10:05 | disposition home or self-care (01) | DRG 807 ==
LOC: LDRP 18:33
PROVIDERS: ADMIT Obstetrics & Gynecology; ATTEND Obstetrics & Gynecology
PROC: 0KQM0ZZ Repair Perineum Muscle, Open Approach (ICD-10-PCS; principal; 2020-05-06)
PROC: 10E0XZZ Delivery of Products of Conception, External Approach (ICD-10-PCS; 2020-05-06)
DX: O70.1 Second degree perineal laceration during delivery (principal); Z37.0 Single live birth; O16.5 Unspecified maternal hypertension, complicating the puerperium; Z3A.39 39 weeks gestation of pregnancy
CPT/HCPCS: 36415; 85025; 86850; 86900; 86901

== ENCOUNTER 2022-02-20 08:21 | Outpatient (CLI) | payer OTHER ==
[~2022-02-20] VITALS: Ht 165.1 cm; Wt 70.0 kg
[~2022-02-20 08:21] MED LIST changes: +ACHD5005 PO; +AMLO5TAB4 PO; +BENZ78AE5 TP; +DOCU-239 PO; +IBUP-844 PO
== END 2022-02-20 11:13 ==
LOC: PREOP 08:21
PROVIDERS: ATTEND Obstetrics & Gynecology
DX: Z01.818 Encounter for other preprocedural examination (principal)

== ENCOUNTER 2022-02-27 06:02 | Day surgery (SDC) | payer OTHER ==
[2022-02-27] VITALS (10 sets, daily range): BP systolic 92–108; BP diastolic 56–70
[~2022-02-27] VITALS: Ht 165 cm; Wt 70.0 kg
[2022-02-27 06:33] LABS: BASOPHILS % (AUTO) 1 % (0-10); EOSINOPHILS # (AUTO) 0.1 10^3/uL (0.0-0.3); EOSINOPHILS % (AUTO) 2 % (0-10); HEMATOCRIT 39 % (35-52); HEMOGLOBIN 13.1 g/dL (11.5-16.0); LYMPHOCYTES # (AUTO) 2.8 10^3/uL (1.0-4.0); LYMPHOCYTES % (AUTO) 32 % (12-44); MEAN CORPUSCULAR HEMOGLOBIN 30 pg (25-34); MEAN CORPUSCULAR HGB CONC 34 g/dL (32-36); MEAN CORPUSCULAR VOLUME 87 fL (80-99); MEAN PLATELET VOLUME 10.8 fL (9.0-12.2); MONOCYTES # (AUTO) 0.6 10^3/uL (0.0-1.0); MONOCYTES % (AUTO) 7 % (0-12); NEUTROPHILS # (AUTO) 5.1 10^3/uL (1.8-7.8); NEUTROPHILS % (AUTO) 58 % (42-75); PLATELET COUNT 218 10^3/uL (130-400); WHITE BLOOD COUNT 8.7 10^3/uL (4.3-11.0)
[2022-02-27] MEDS ORDERED: METOCLOPRAMIDE INJ 10 MG/2 ML (REGLAN) IV PRN (06:45)
[2022-02-27] MEDS ORDERED: diphenhydrAMINE 50 MG/ML INJ (BENADRYL) IV PRN (06:45)
[2022-02-27] MEDS ORDERED: NALOXONE 0.4 MG/ML 1 ML (NARCAN) VIAL IV PRN ×2 (06:45)
[2022-02-27] MEDS ORDERED: ONDANSETRON 4 MG/2 ML (SDV) Z0FRAN IV PRN (06:45)
[2022-02-27] MEDS: LACTATED RINGERS 1,000 ML IV PRN ×2 (06:55→07:03)
[2022-02-27] MEDS ORDERED: fentaNYL INJ 100 MCG/2 ML AMP ONE (06:59)
--- NOTE | 2022-02-27 07:35 | Progress Note-Pre Operative ---
Pre-Operative Progress Note H&P Reviewed The H&P was reviewed, patient examined and no changes noted. Date Seen by Provider: Feb 27, 2022 Time Seen by Provider: 07:00 Date H&P Reviewed: Feb 27, 2022 Time H&P Reviewed: 07:05 Pre-Operative Diagnosis: Cervical insufficency, 16 week IUP SHOAIB SALGADO DO Feb 27, 2022 07:35
[2022-02-27] MEDS ORDERED: INDO25CA99 PO (08:13)
[2022-02-27] MEDS ORDERED: ONDANSETRON 4 MG/2 ML (SDV) Z0FRAN IVP PRN ×2 (08:15)
[2022-02-27] MEDS ORDERED: INDOMETHACIN 25 MG (INDOCIN) CAP PO ONE (08:15)
[2022-02-27] MEDS ORDERED: HYDROcodone/APAP 5 MG/325 MG (LORTAB) TAB PO PRN (08:15)
[2022-02-27] MEDS ORDERED: D5 LR IV SOLUTION 1,000 ML IV SCH (08:15)
[2022-02-27] MEDS ORDERED: morphine INJ 10 MG/ML 1ML (SYR OR VIAL) IVP ONE (08:15)
--- NOTE | 2022-02-27 10:38 | Anesthesia-Regional Post-Op ---
Regional Patient Condition Mental Status: Alert, Oriented x3 Circulation: Same as Pre-Op Headache: Absent Sensation: Full Recovery Motor Block: Absent Post Op Complications Complications None Follow Up Care/Instructions Patient Instructions None needed. Anesthesia/Patient Condition Patient is doing well, no complaints, stable vital signs, no apparent adverse anesthesia problems. No complications reported per nursing. JOSE BEAR CRNA Feb 27, 2022 10:38
--- NOTE | 2022-02-27 13:22 | OPERATIVE REPORT ---
DATE OF SERVICE: 02/27/2022 PREOPERATIVE DIAGNOSES: 1. A 31-year-old female with history of conization x2. 2. Cervical insufficiency. POSTOPERATIVE DIAGNOSES: 1. A 31-year-old female with history of conization x2. 2. Cervical insufficiency. PROCEDURE: Solorzano cerclage. SURGEON: Shoaib Salgado DO ANESTHESIA: Spinal. ESTIMATED BLOOD LOSS: 25 mL. URINE OUTPUT: 100 mL drained at the end of the procedure. FLUIDS: 600 mL lactated Ringer's solution. FINDINGS: Cervix with consistent history of previous cerclage and conization; otherwise, grossly normal appearing external female genitalia. SPECIMEN SENT: None. INDICATIONS FOR PROCEDURE: This 31-year-old female is a patient who had sought care in my office with her first , this is her second . Her first required a cerclage. Therefore, we are placing a prophylactic cerclage under 20 weeks. She is approximately 16 weeks' gestation. Risks of the procedure were discussed with the patient in detail and after all of her questions were answered in the preoperative area, the patient was taken to the operating room. OPERATIVE REPORT IN DETAIL: Once in the operating room, spinal analgesia was found to be adequate, placed in dorsal lithotomy position, prepped and draped in normal sterile fashion. A timeout was performed, and anesthesia was tested. I then placed a weighted speculum into the patient's vagina. A right angle retractor was used to visualize the cervix, which was grasped at 12 o'clock position using a long Allis clamp. I then performed a Solorzano cerclage using #5 Ethibond, 4 quadrants of the cervix were taken with each throw of the suture and the knot is placed at the 12 o'clock position and double knotted so that it is easily seen. After which there was no active bleeding noted from the cervix. The cervix is irrigated using normal saline. Again, no bleeding was noted from any of my cervix at that point. All instruments were removed from the patient's vagina. The patient tolerated the procedure well and was taken to recovery area in stable condition. Lap and sponge counts were correct at the end of the procedure. Instrument counts correct as well. Heart tones are auscultated prior to the procedure at 130 and post-procedurally in the 130s. Job ID: [id number] DocumentID: [id number] Dictated Date: 02/27/2022 09:12:33 Buncher Hand Date: 02/27/2022 13:20:51 Dictated By: SHOAIB SALGADO DO
== END 2022-02-27 12:55 | disposition home or self-care (01) ==
LOC: SDC 06:02
PROVIDERS: ATTEND Obstetrics & Gynecology
DX: O34.32 Maternal care for cervical incompetence, second trimester (principal); Z98.890 Other specified postprocedural states
CPT/HCPCS: 36415; 85025; 86850; 86900; 86901; 87081

== ENCOUNTER → 2022-03-02 | Outpatient (CLI) | payer OTHER | LOC: LABNPT 10:15 | PROVIDERS: ATTEND Obstetrics & Gynecology | DX: Z36.89 Encounter for other specified antenatal screening (principal) | CPT/HCPCS: 82105; 82677; 84702 ==

== ENCOUNTER → 2022-03-23 | Outpatient (CLI) | payer OTHER ==
--- NOTE | 2022-03-23 13:39 | Diagnostic Imaging Report ---
INDICATION: , anatomic survey. TECHNIQUE: Multiple real-time grayscale images were obtained over the gravid uterus. COMPARISON: None. FINDINGS: There is a single live intrauterine gestation in cephalic presentation. The placenta is posterior and is low lying, measuring 1.2 cm away from the internal os. The cervix is measured at 9.5 cm. No funneling or endocervical fluid is seen. The stomach is seen. The heart rate measures 147 BPM. The kidneys are seen. The bladder is seen. There are two umbilical arteries. The cord insertion is seen. A four-chamber heart is seen. The right and left ventricular outflow tracts are seen. The diaphragm is seen. The lateral ventricles are seen. The cerebellum and cisterna magna are seen. The upper and lower spine are seen. The nose and lips are seen. The profile is seen. The amniotic fluid is subjectively normal. A vertical pocket measuring 3 cm is noted. Biometrical measurements are as follows: Biparietal 4.64 cm, age 20 weeks 1 days. Head circumference 17.87 cm, age 20 weeks 3 days. Abdominal circumference 15.03 cm, age 20 weeks 2 days. Femur length 3.31 cm, age 20 weeks 3 days. Sonographic estimate age: 20 weeks 3 days. Sonographic estimated date of delivery: 08/07/2022. Estimated Weight: 345 gm (+/- 20 gm). LMP percentile: 38%. heart rate: 147 beats per minute. number: 1 of 1. IMPRESSION: 1. Single live intrauterine gestation measuring at 20 weeks and 3 days which is concordant with the clinical dates. 2. Low-lying placenta without previa. Recommend continued follow-up. 3. Anatomic survey. No abnormality seen. Dictated by: Dictated on workstation # [id number]
== END ==
LOC: RAD 11:00
PROVIDERS: ATTEND Obstetrics & Gynecology
DX: Z34.02 Encounter for supervision of normal first pregnancy, second trimester (principal); Z3A.20 20 weeks gestation of pregnancy
CPT/HCPCS: 76805

== ENCOUNTER 2022-07-20 10:20 | Inpatient (IN) | payer OTHER ==
[2022-07-20] VITALS (57 sets, daily range): BP systolic 65–141; BP diastolic 38–90
[2022-07-20 11:00] LABS: BASOPHILS % (AUTO) 0 % (0-10); EOSINOPHILS # (AUTO) 0.1 10^3/uL (0.0-0.3); EOSINOPHILS % (AUTO) 1 % (0-10); HEMATOCRIT 36 % (35-52); LYMPHOCYTES % (AUTO) 26 % (12-44); MEAN CORPUSCULAR HEMOGLOBIN 30 pg (25-34); MEAN CORPUSCULAR HGB CONC 34 g/dL (32-36); MEAN CORPUSCULAR VOLUME 89 fL (80-99); MEAN PLATELET VOLUME 10.8 fL (9.0-12.2); MONOCYTES # (AUTO) 0.5 10^3/uL (0.0-1.0); MONOCYTES % (AUTO) 7 % (0-12); NEUTROPHILS # (AUTO) 5.1 10^3/uL (1.8-7.8); NEUTROPHILS % (AUTO) 66 % (42-75); PLATELET COUNT 211 10^3/uL (130-400); WHITE BLOOD COUNT 7.8 10^3/uL (4.3-11.0)
[2022-07-20] MEDS: D5 LR IV SOLUTION 1,000 ML IV SCH ×2 (11:09→16:15)
[2022-07-20] MEDS ORDERED: fentaNYL 2 mcg/ml BUPIVA 0.125 100 ML ONE (11:16)
[2022-07-20] MEDS ORDERED: LACTATED RINGERS 1,000 ML IV ONE ×2 (11:16→14:15)
[2022-07-20] MEDS ORDERED: fentaNYL INJ 100 MCG/2 ML AMP ONE (12:03)
[2022-07-20] MEDS ORDERED: BUPIVACAINE 0.25% 10 ML (SENSORCAINE) VIAL ONE (12:03)
[2022-07-20] MEDS: fentaNYL 2 mcg/ml BUPIVA 0.125 100 ML IV SCH ×2 (12:20→18:40)
--- NOTE | 2022-07-20 13:25 | History & Physical-OB ---
OB - Chief Complaint & HPI Date/Time Date of Admission: Date of Admission: Jul 20, 2022 at 10:20 am Date seen by a Provider: Jul 20, 2022 Time Seen by a Provider: 09:30 Chief Complaint/History OB-Reason for Admission/Chief: Onset of Labor Hx : 2 Hx Para: 1 Expected Date of Delivery: Aug 07, 2022 Gestational Age in Weeks: 37 Gestational Age in Days: 3 Admission Nurse Assessment Rev: Yes Other A pos Antibody neg RI RPR NR HBsAg NR HIV NR GC neg GBS neg Allergies and Home Medications Allergies Coded Allergies: codeine (Verified Allergy, Mild, HIVES, N/V, has rec Morphine & Dilaudid in the past, 11/21/19) Patient Home Medication List Home Medication List Reviewed: Yes Vit No.124/Iron/FA ( Vitamin Tablet) 1 Each Tablet, 1 EACH PO DAILY, (Reported) Entered as Reported by: CARRILLO [place] on 11/17/19 1304 Last Action: Reviewed Discontinued Medications Indomethacin (Indomethacin) 25 Mg Capsule, 25 MG PO Q6H Discontinued Reason: No Longer Taking Prescribed by: SHOAIB SALGADO on 02/27/22 0813 Last Action: Discontinued OB - History Hx of Present Care: Yes Ultrasounds: Normal mid trimester US Obstetrical Complications: None Medical Complications: None Delivery History Adverse Rxn to Tranfusion: No Patient Past Medical History n/a Social History/Family History 2nd Hand Smoke Exposure: No Immunizations First/Initial COVID19 Vaccine: 10/2021 Second COVID19 Vaccination: 11/2020 Third COVID19 Vaccination Date: 09/2021 Hepatitis A: Yes Hepatitis B: Yes Tetanus Booster (TDap): Unknown Date of Pneumonia Vaccine: Nov 17, 2004 OB - Admission Exam Physical Exam Vitals: Vital Signs 07/20/22 10:35 Pulse 88 Resp 18 B/P (MAP) 125/79 (94) Pulse Ox 96 O2 Delivery Room Air HEENT: NCAT Heart: Rhythm Normal Lungs: Clear Abdomen: Gravid Extremities: Normal Reflexes: Normal Cervical Dilatation: 4cm Effacement: 75% Station: -1 Membranes: Intact Heart Rate: 130's Accelerations: Accelerations Present Decelerations: No Decelerations Short Term Variability: Present [facility] Variability: Average (6-25) Contractions on Admission: 6-10 Minutes Apart Intensity: Firm Labs Laboratory Tests Test 07/20/22 10:45 Range/Units White Blood Count 7.8 4.3-11.0 10^3/uL Red Blood Count 4.02 3.80-5.11 10^6/uL Hemoglobin 12.0 11.5-16.0 g/dL Hematocrit 36 35-52 % Mean Corpuscular Volume 89 80-99 fL Mean Corpuscular Hemoglobin 30 25-34 pg Mean Corpuscular Hemoglobin Concent 34 32-36 g/dL Red Cell Distribution Width 13.3 10.0-14.5 % Platelet Count 211 130-400 10^3/uL Mean Platelet Volume 10.8 9.0-12.2 fL Immature Granulocyte % (Auto) 1 % Neutrophils (%) (Auto) 66 42-75 % Lymphocytes (%) (Auto) 26 12-44 % Monocytes (%) (Auto) 7 0-12 % Eosinophils (%) (Auto) 1 0-10 % Basophils (%) (Auto) 0 0-10 % Neutrophils # (Auto) 5.1 1.8-7.8 10^3/uL Lymphocytes # (Auto) 2.0 1.0-4.0 10^3/uL Monocytes # (Auto) 0.5 0.0-1.0 10^3/uL Eosinophils # (Auto) 0.1 0.0-0.3 10^3/uL Basophils # (Auto) 0.0 0.0-0.1 10^3/uL Immature Granulocyte # (Auto) 0.1 0.0-0.1 10^3/uL OB - Assessment/Plan/Diagnosis Assessment Assessment: active labor Admission Dx 31 yo @ 37.3 Active labor GBS neg Hx of Precipatous delivery Admission Status: Inpatient Order (span 2 midnights) Reason for Inpatient Admission: 37 week labor Plan Plan: Expectant Management SHOAIB SALGADO DO Jul 20, 2022 1:25 pm
[2022-07-20] MEDS ORDERED: diphenhydrAMINE 50 MG/ML INJ (BENADRYL) IV PRN (14:15)
[2022-07-20] MEDS ORDERED: ONDANSETRON 4 MG/2 ML (SDV) Z0FRAN IV PRN (14:15)
[2022-07-20] MEDS ORDERED: CATHETER FLUSH 10 ML SYR IV PRN (14:15)
[2022-07-20] MEDS ORDERED: NALOXONE 0.4 MG/ML 1 ML (NARCAN) VIAL IV PRN ×2 (14:15→21:30)
[2022-07-20] MEDS ORDERED: OXYTOCIN PRE-MIX DRIP 500 ML IV ONE (17:19)
[2022-07-20] MEDS ORDERED: OXYTOCIN PRE-MIX DRIP 500 ML IV SCH (17:30)
[2022-07-20] MEDS ORDERED: LIDOCAINE/EPI 2% 1:200,00 (XYLOCAINE) 10 ML VIAL ONE (19:41)
[2022-07-20] MEDS ORDERED: LIDOCAINE/EPI 2% 1:200,00 (XYLOCAINE) 10 ML VIAL INJ PRN (19:45)
[2022-07-20] MEDS: CATHETER FLUSH 10 ML SYR IV SCH ×2 (20:14→21:12)
[2022-07-20] MEDS ORDERED: DIBUCAINE 1% OINTMENT 30 GM TUBE TOP PRN (21:30)
[2022-07-20] MEDS: OXYTOCIN PRE-MIX DRIP 500 ML IV SCH ×2 (21:30→21:43)
[2022-07-20] MEDS ORDERED: WITCH HAZEL(TUCKS) 40 EA JAR TOP PRN (21:30)
[2022-07-20] MEDS ORDERED: MEASLES,MUMPS,RUBELLA 1 EA INJ SQ ONE (21:30)
[2022-07-20] MEDS ORDERED: BENZOCAINE/MENTHOL (DERMOPLAST) 56 ML CAN TP PRN (21:30)
[2022-07-20] MEDS ORDERED: TETANUS,DIPTH,PERTUSS P/F (BOOSTRIX) 0.5 ML VIAL IM ONE (21:30)
--- NOTE | 2022-07-20 21:36 | OB Labor & Delivery Record ---
L&D History Date of Service Date of Service: Jul 20, 2022 History Expected Date of Delivery: Aug 07, 2022 Gestational Age in Weeks: 37 Hx : 2 Hx Para: 1 Complications Events: Routine care Operative Indications (Cesarea: N/A-Vaginal Delivery Intrapartal Events: None L&D Stage1 Stage One Onset of Labor - Date: Jul 20, 2022 Monitors and Tracing Monitor Mode: External Heart Rate: 125 Monitor Accelerations: Uniform Monitor Decelerations: None Stacker Straightener Variability: Average (6-10) Short Term Variability: Present Presentation: Vertex Vital Signs VS - Last 72 Hours, by Label 07/20/22 07/20/22 07/20/22 07/20/22 10:35 12:07 12:10 12:13 Pulse 88 80 88 74 Resp 18 18 18 18 B/P (MAP) 125/79 (94) 132/82 (99) 140/87 (104) 118/70 (86) Pulse Ox 96 98 100 100 O2 Delivery Room Air Room Air Room Air Room Air 07/20/22 07/20/22 07/20/22 07/20/22 12:16 12:19 12:22 12:28 Temp 36.9 Pulse 75 68 87 106 Resp 18 18 18 18 B/P (MAP) 132/78 (96) 126/77 (93) 124/82 (96) 109/84 (92) Pulse Ox 97 97 O2 Delivery Room Air Room Air Room Air Room Air 07/20/22 07/20/22 07/20/22 07/20/22 12:33 12:39 12:40 12:43 Pulse 97 63 69 75 Resp 18 18 18 18 B/P (MAP) 65/38 (47) 107/60 (76) 105/58 (74) 102/60 (74) Pulse Ox 98 O2 Delivery Room Air Room Air Room Air Room Air 07/20/22 07/20/22 07/20/22 07/20/22 12:48 12:54 12:59 13:03 Pulse 75 75 89 76 Resp 18 18 18 18 B/P (MAP) 115/55 (75) 124/73 (90) 117/74 (88) 116/61 (79) Pulse Ox 97 97 94 97 O2 Delivery Room Air Room Air Room Air Room Air 07/20/22 07/20/22 07/20/22/8/22 13:08 13:14 13:30 13:44 Pulse 68 71 70 73 Resp 18 18 18 18 B/P (MAP) 119/69 (86) 113/67 (82) 111/66 (81) 116/72 (87) Pulse Ox 99 99 98 99 O2 Delivery Room Air Room Air Room Air Room Air 07/20/22 07/20/22 07/20/22 07/20/22 14:00 14:15 14:30 14:45 Pulse 72 79 68 77 Resp 18 18 18 18 B/P (MAP) 119/76 (90) 116/76 (89) 110/71 (84) 122/74 (90) Pulse Ox 98 100 100 100 O2 Delivery Room Air Room Air Room Air Room Air 07/20/22 07/20/22 07/20/22 07/20/22 15:00 15:17 15:30 15:45 Pulse 79 89 61 65 Resp 18 18 18 18 B/P (MAP) 112/68 (83) 130/86 (101) 100/59 (73) 107/56 (73) Pulse Ox 99 99 99 100 O2 Delivery Room Air Room Air Room Air Room Air 07/20/22 07/20/22 07/20/22 07/20/22 16:01 16:17 16:30 16:45 Temp 36.8 Pulse 68 72 75 63 Resp 18 18 18 18 B/P (MAP) 120/73 (89) 116/67 (83) 117/72 (87) 115/76 (89) O2 Delivery Room Air Room Air Room Air Room Air 07/20/22 07/20/22 07/20/22 07/20/22 17:00 17:15 17:30 17:45 Temp 36.6 Pulse 68 74 77 90 Resp 18 18 18 18 B/P (MAP) 119/78 (92) 106/64 (78) 132/81 (98) 119/77 (91) O2 Delivery Room Air Room Air Room Air Room Air 07/20/22 07/20/22 07/20/22 07/20/22 18:00 18:15 18:30 18:45 Pulse 71 69 87 81 Resp 18 18 18 18 B/P (MAP) 110/67 (81) 113/72 (86) 105/65 (78) 123/71 (88) O2 Delivery Room Air Room Air Room Air Room Air 07/20/22 19:04 Temp 36.7 Pulse 80 Resp 18 B/P (MAP) 134/76 (95) O2 Delivery Room Air Rupture of Membranes Spontaneous Ruture of Membrane: No Amniotic Membrane Rupture Time: 1252 Amniotic Membrane Fluid Desc.: Clear Vaginal Bleeding Description: Normal Show Induction/Anesthesia Epidural Cath Placement - Time: 1213 Progress/Notes Patient admitted after cerclage removal changed cervix in office to 4-5 cm. Arom performed and patient progressed after epidural placement to complete and + 2 station. L&D Stage2 Monitors and Tracing Monitor Mode: External Heart Rate: 125 Monitor Accelerations: Uniform Monitor Decelerations: None Usp Variability: Average (6-10) Short Term Variability: Present Position: Right Occiput Anterior Presentation: Vertex Cord Descript/Complications Cord Vessel Description: 3 Vessels Delivery Type Infant Delivery Method: Spontaneous Vaginal Anterior Shoulder: Left Episiotomy/Perineal Laceration Episiotomy Description: Perineal Extension/lac, 2nd degree Degree (describe repair) laceration repaired using 3-0 rapide and 2-0 vicryl suture in usual fashion. Condition of Delivery 1 minute Comment: 8 5 minute Comment: 9 Notes Live female infant weight 6lbs 14 oz Condition of Condition of : Living Exam: No Observed Abnormalities Resuscitation Resuscitation: N/A - Spontaneous Resp L&D Stage3 Stage Three Stage III Date: Jul 20, 2022 Pictocin Pitocin Administration mu/min: 4 Pitocin ml/hr: 4 Pitocin Administration Comment: 30 mu wide open after delivery of placenta Placenta Delivery Placenta Delivery: Spontaneous Delivery Summary Summary Estimated blood loss (mL): 350 Attending at delivery: Shoaib Salgado DO Condition of Delivery Examined: Cervix Examined, Uterus Explored Post Hemorrhage: No Condition of Mother stable Condition of Infant (s) stable SHOAIB SALGADO DO Jul 20, 2022 21:36
--- NOTE | 2022-07-20 21:38 | Discharge Inst-Women's Service ---
Discharge Inst-Women's Serv Depart Medication/Instructions New, Converted or Re-Newed RX: Transmitted to Pharmacy Final Diagnosis PPD 2 NVD Problems Reviewed?: Yes Consults/Follow Up Additional Follow Up: Yes Orders/Referrals Dr. Salgado in 6 weeks Activity Activity: Activity as Tolerated Driving Instructions: No Driving for 1 Week NO SMOKING: NO SMOKING Diet Discharge Diet: No Restrictions Symptoms to Report to : Bleeding Excessive, Pain Increased, Fever Over 101 Degrees F, Vaginal Bleeding Increase, Questions/Concerns For Any Problems or Questions: Contact Your Physician SHOAIB SALGADO DO Jul 20, 2022 21:38
[2022-07-20] MEDS ORDERED: IBUP-844 PO (21:39)
[2022-07-20] MEDS ORDERED: DOCU100C37 PO (21:39)
[2022-07-20] MEDS ORDERED: ACET-93 PO (21:39)
[2022-07-20] MEDS ORDERED: BENZ78AE5 TP (21:39)
[2022-07-20] MEDS ORDERED: CATHETER FLUSH 10 ML SYR IV SCH (22:00)
[2022-07-20] MEDS: IBUPROFEN 600 MG (MOTRIN) TAB PO SCH (22:17)
[2022-07-20] MEDS: ACETAMINOPHEN 500 MG TAB (TYLENOL) PO SCH (22:17)
[2022-07-21] VITALS (7 sets, daily range): BP systolic 109–144; BP diastolic 55–94
[2022-07-21] MEDS: IBUPROFEN 600 MG (MOTRIN) TAB PO SCH ×3 (04:20→16:14)
[2022-07-21] MEDS: D5 LR IV SOLUTION 1,000 ML IV SCH (04:56)
[2022-07-21 06:04] LABS: BASOPHILS % (AUTO) 0 % (0-10); EOSINOPHILS # (AUTO) 0.1 10^3/uL (0.0-0.3); EOSINOPHILS % (AUTO) 1 % (0-10); HEMATOCRIT 33 % (35-52); HEMOGLOBIN 10.9 g/dL (11.5-16.0); LYMPHOCYTES # (AUTO) 2.3 10^3/uL (1.0-4.0); LYMPHOCYTES % (AUTO) 18 % (12-44); MEAN CORPUSCULAR HEMOGLOBIN 30 pg (25-34); MEAN CORPUSCULAR HGB CONC 33 g/dL (32-36); MEAN CORPUSCULAR VOLUME 90 fL (80-99); MONOCYTES # (AUTO) 0.7 10^3/uL (0.0-1.0); MONOCYTES % (AUTO) 6 % (0-12); NEUTROPHILS # (AUTO) 9.3 10^3/uL (1.8-7.8); NEUTROPHILS % (AUTO) 75 % (42-75); PLATELET COUNT 183 10^3/uL (130-400); WHITE BLOOD COUNT 12.5 10^3/uL (4.3-11.0)
[2022-07-21] MEDS ORDERED: PRENATAL VITAMIN 1 EA TAB PO SCH (07:00)
[2022-07-21] MEDS: ACETAMINOPHEN 500 MG TAB (TYLENOL) PO SCH ×2 (07:21→15:00)
[2022-07-21] MEDS ORDERED: DOCUSATE SODIUM 100 MG (COLACE) CAP PO SCH (09:00)
[2022-07-21] MEDS ORDERED: FERROUS SULF 325 MG (IRON) TAB PO SCH (09:00)
--- NOTE | 2022-07-21 10:35 | Postpartum Progress Note ---
Note Note Day # 1 Subjective: Patient is without complaints. Ambulating, voiding. Tolerating a regular diet without nausea or vomiting. Normal lochia. Pain is well controlled with oral pain medications. Physical Exam: General - Alert and oriented, no apparent distress Abdomen - Soft, appropriately tender to palpation, non-distended, fundus firm at umbilicus Extremities - no edema, negative Reilly's bilaterally Assessment: Post- day # 1, status post vaginal delivery. Recovering well, hemodynamically stable Acute blood loss anemia Plan: Routine care. Encourage breast feeding. Encourage ambulation. Ferrous sulfate supplementation. Plan for discharge today Vitals - Labs Vital Signs - I&O Vital Signs Date Time Temp Pulse Resp B/P (MAP) Pulse Ox O2 Delivery O2 Flow Rate FiO2 07/21/22 08:40 36.7 68 18 144/94 (111) 97 07/21/22 03:00 36.8 66 18 131/66 (87) 98 Room Air 07/21/22 00:20 36.9 71 18 109/55 (73) Room Air 07/20/22 23:45 36.8 81 18 109/57 (74) Room Air 07/20/22 23:15 73 18 108/57 (74) Room Air 07/20/22 22:45 36.9 88 18 118/59 (78) Room Air 07/20/22 22:15 91 18 109/56 (73) Room Air 07/20/22 22:00 36.9 90 18 110/59 (76) Room Air 07/20/22 21:46 105 18 107/56 (73) 97 Room Air 07/20/22 21:31 36.9 101 18 107/53 (71) Room Air 07/20/22 21:15 38.0 102 18 107/53 (71) Room Air 07/20/22 21:03 37.8 106 18 134/61 (85) Room Air 07/20/22 20:45 96 18 100 Room Air 07/20/22 20:30 93 18 132/90 (104) 97 Room Air 07/20/22 20:15 101 18 121/74 (90) 97 Room Air 07/20/22 20:00 37.0 100 18 117/76 (90) 100 Room Air 07/20/22 19:50 82 18 141/63 (89) 99 Room Air 07/20/22 19:40 84 18 134/52 (79) 99 Room Air 07/20/22 19:30 75 18 109/55 (73) 99 Room Air 07/20/22 19:15 37.4 86 18 93/51 (65) 100 Room Air 07/20/22 19:04 36.7 80 18 134/76 (95) Room Air 07/20/22 18:45 81 18 123/71 (88) Room Air 07/20/22 18:30 87 18 105/65 (78) Room Air 07/20/22 18:15 69 18 113/72 (86) Room Air 07/20/22 18:00 71 18 110/67 (81) Room Air 07/20/22 17:45 90 18 119/77 (91) Room Air 07/20/22 17:30 77 18 132/81 (98) Room Air 07/20/22 17:15 36.6 74 18 106/64 (78) Room Air 07/20/22 17:00 68 18 119/78 (92) Room Air 07/20/22 16:45 63 18 115/76 (89) Room Air 07/20/22 16:30 75 18 117/72 (87) Room Air 07/20/22 16:17 72 18 116/67 (83) Room Air 07/20/22 16:01 36.8 68 18 120/73 (89) Room Air 07/20/22 15:45 65 18 107/56 (73) 100 Room Air 07/20/22 15:30 61 18 100/59 (73) 99 Room Air 07/20/22 15:17 89 18 130/86 (101) 99 Room Air 07/20/22 15:00 79 18 112/68 (83) 99 Room Air 07/20/22 14:45 77 18 122/74 (90) 100 Room Air 07/20/22 14:30 68 18 110/71 (84) 100 Room Air 07/20/22 14:15 79 18 116/76 (89) 100 Room Air 07/20/22 14:00 72 18 119/76 (90) 98 Room Air 07/20/22 13:44 73 18 116/72 (87) 99 Room Air 07/20/22 13:30 70 18 111/66 (81) 98 Room Air 07/20/22 13:14 71 18 113/67 (82) 99 Room Air 07/20/22 13:08 68 18 119/69 (86) 99 Room Air 07/20/22 13:03 76 18 116/61 (79) 97 Room Air 07/20/22 12:59 89 18 117/74 (88) 94 Room Air 07/20/22 12:54 75 18 124/73 (90) 97 Room Air 07/20/22 12:48 75 18 115/55 (75) 97 Room Air 07/20/22 12:43 75 18 102/60 (74) Room Air 07/20/22 12:40 69 18 105/58 (74) Room Air 07/20/22 12:39 63 18 107/60 (76) Room Air 07/20/22 12:33 97 18 65/38 (47) 98 Room Air 07/20/22 12:28 106 18 109/84 (92) Room Air 07/20/22 12:22 36.9 87 18 124/82 (96) 97 Room Air 07/20/22 12:19 68 18 126/77 (93) Room Air 07/20/22 12:16 75 18 132/78 (96) 97 Room Air 07/20/22 12:13 74 18 118/70 (86) 100 Room Air 07/20/22 12:10 88 18 140/87 (104) 100 Room Air 07/20/22 12:07 80 18 132/82 (99) 98 Room Air 07/20/22 10:35 88 18 125/79 (94) 96 Room Air I & O 07/21/22 07:00 Intake Total 4150 ml Output Total 2050 ml Balance 2100 ml Labs Laboratory Tests 07/20/22 10:45: White Blood Count 7.8, Red Blood Count 4.02, Hemoglobin 12.0, Hematocrit 36, Mean Corpuscular Volume 89, Mean Corpuscular Hemoglobin 30, Mean Corpuscular Hemoglobin Concent 34, Red Cell Distribution Width 13.3, Platelet Count 211, Me an Platelet Volume 10.8, Immature Granulocyte % (Auto) 1, Neutrophils (%) (Auto) 66, Lymphocytes (%) (Auto) 26, Monocytes (%) (Auto) 7, Eosinophils (%) (Auto) 1, Basophils (%) (Auto) 0, Neutrophils # (Auto) 5.1, Lymphocytes # (Auto) 2.0, Monocytes # (Auto) 0.5, Eosinophils # (Auto) 0.1, Basophils # (Auto) 0.0, Immature Granulocyte # (Auto) 0.1 07/21/22 05:53: White Blood Count 12.5H, Red Blood Count 3.65L, Hemoglobin 10.9L, Hematocrit 33L , Mean Corpuscular Volume 90, Mean Corpuscular Hemoglobin 30, Mean Corpuscular Hemoglobin Concent 33, Red Cell Distribution Width 13.2, Platelet Count 183, Mean Platelet Volume 11.0, Immature Granulocyte % (Auto) 1, Neutrophils (%) (Auto) 75, Lymphocytes (%) (Auto) 18, Monocytes (%) (Auto) 6, Eosinophils (%) (Auto) 1, Basophils (%) (Auto) 0, Neutrophils # (Auto) 9.3H, Lymphocytes # (Auto) 2.3, Monocytes # (Auto) 0.7, Eosinophils # (Auto) 0.1, Basophils # (Auto) 0.0, Immature Granulocyte # (Auto) 0.1 RUBIN DOOLEY SHIP/REC/DOC CONTROL Jul 21, 2022 10:35
--- NOTE | 2022-07-21 14:51 | Anesthesia-Regional Post-Op ---
Regional Patient Condition Mental Status: Alert, Oriented x3 Circulation: Same as Pre-Op Headache: Absent Sensation: Full Recovery Motor Block: Absent Post Op Complications Complications None Follow Up Care/Instructions Patient Instructions None needed. Anesthesia/Patient Condition Patient is doing well, no complaints, stable vital signs, no apparent adverse anesthesia problems. She did have some residual numbness in her left thigh initially, but it resolved by around noon today when I saw her. She is ambulating without difficulty. TRICIA ABRAHAM DO Jul 21, 2022 14:51
== END 2022-07-21 21:30 | disposition home or self-care (01) | DRG 806 ==
LOC: LDRP 10:20
PROVIDERS: ADMIT Obstetrics & Gynecology; ATTEND Obstetrics & Gynecology
PROC: 10E0XZZ Delivery of Products of Conception, External Approach (ICD-10-PCS; principal; 2022-07-20)
PROC: 0KQM0ZZ Repair Perineum Muscle, Open Approach (ICD-10-PCS; 2022-07-20)
PROC: 10907ZC Drainage of Amniotic Fluid, Therapeutic from Products of Conception, Via Natural or Artificial Opening (ICD-10-PCS; 2022-07-20)
PROC: 3E033VJ Introduction of Other Hormone into Peripheral Vein, Percutaneous Approach (ICD-10-PCS; 2022-07-20)
DX: O70.1 Second degree perineal laceration during delivery (principal); D62 Acute posthemorrhagic anemia; Z37.0 Single live birth; Z3A.37 37 weeks gestation of pregnancy; O90.81 Anemia of the puerperium
CPT/HCPCS: 36415; 85025; 86850; 86900; 86901

== ENCOUNTER → 2023-01-23 | Outpatient (CLI) | payer OTHER ==
[~2023-01-23] MED LIST changes: +ACET-93 PO; +CATHETER FLUSH 10 ML SYR IV PRN; +DOCU100C37 PO; +HOLD METFORMIN - RECEIVED CONTRAST 20 ML VIAL IV SCH; +IOHEXOL 350 MG/ML 100 ML (OMNIPAQUE 350) VIAL IV ONE; +NS 100 ML (IVPB) BAG IV ONE
--- NOTE | 2023-01-23 18:57 | Diagnostic Imaging Report ---
PROCEDURE: CT neck soft tissue with contrast. TECHNIQUE: Multiple contiguous axial images were obtained through the neck after the administration of contrast. Auto Exposure Controls were utilized during the CT exam to meet ALARA standards for radiation dose reduction. INDICATION: Right submandibular mass for 2 days. COMPARISON: No prior studies are available for comparison. The visualized intracranial structures are unremarkable. Posterior nasopharynx and oropharynx are unremarkable. The parapharyngeal fat planes are preserved. Epiglottis and larynx are unremarkable. No thyroid mass is detected. The parotid and submandibular glands appear to be symmetric bilaterally. There are enlarged lymph nodes in the right submandibular region, likely accounting for the palpable abnormality. The largest node measures 2.2 x 1.3 cm. There are small lymph nodes in the left submandibular region. Small posterior cervical chain lymph nodes are noted, as well. No fluid collections are identified. IMPRESSION: Mildly enlarged right submandibular lymph nodes, correlating with the palpable abnormality. These are indeterminate. Clinical follow-up would be recommended to confirm stability or resolution. Dictated by: Dictated on workstation # [id number]
== END ==
LOC: RAD 16:27
PROVIDERS: ATTEND Nurse Practitioner Family
DX: R59.9 Enlarged lymph nodes, unspecified (principal)
CPT/HCPCS: 70491